=== PATIENT | male | born 1950 | race Caucasian/White ===

== ENCOUNTER 2016-08-09 15:05 | Emergency (ER) | payer BC ==
[2016-08-09 15:20] VITALS: BP 124/68
--- NOTE | 2016-08-09 16:32 | UC ---
FLU HPI - HPI Summary HPI Summary: Pt c/o generalized malaise, fever and cough X 1 week. Pt reports that he did get a flu vaccine this year. - History of Current Complaint Chief Complaint: UCRespiratory Stated Complaint: SINUS CONGESTION Time Seen by Provider: 08/09/16 15:43 Hx Obtained From: Patient Onset/Duration: Sudden Onset, Lasting Days Severity Currently: Mild Severity Initially: Mild Associated Signs & Symptoms: Positive: Fever, Myalgia, Cough Related Hx: Possible Flu/Infectious Exposure - Allergy/Home Medications Allergies/Adverse Reactions: Allergies Allergy/AdvReac Type Severity Reaction Status Date / Time No Known Allergies Allergy Verified 08/09/16 15:20 PMH/Surg Hx/FS Hx/Imm Hx Previously Healthy: Yes Endocrine History Of: Denies: Diabetes, Thyroid Disease Cardiovascular History Of: Reports: Hypertension Denies: Cardiac Disorders Respiratory History Of: Denies: COPD, Asthma GI/ History Of: Denies: Ulcer - Surgical History Surgical History: Yes Surgery Procedure, Year, and Place: bilat hernia repair - Family History Known Family History: Positive: Other - positive [facility] for URI - Social History Lives: With Family Alcohol Use: Weekly Substance Use Type: None Smoking Status (MU): Never Smoked Tobacco Review of Systems Constitutional: Fever, Chills, Fatigue Skin: Negative Eyes: Negative ENT: Negative Respiratory: Cough Cardiovascular: Negative Gastrointestinal: Negative Genitourinary: Negative Motor: Negative Neurovascular: Negative Musculoskeletal: Myalgia Neurological: Negative Psychological: Negative All Other Systems Reviewed And Are Negative: Yes Physical Exam Triage Information Reviewed: Yes Appearance: Ill-Appearing Vital Signs: Initial Vital Signs Temp 99.2 F 08/09/16 15:15 Pulse 79 08/09/16 15:15 Resp 18 08/09/16 15:15 BP 124/68 08/09/16 15:15 Pulse Ox 98 08/09/16 15:15 Vital Signs Reviewed: Yes Eye Exam: Normal ENT Exam: Other ENT: Positive: Nasal congestion Neck exam: Normal Respiratory Exam: Other Respiratory: Positive: Wheezing Cardiovascular Exam: Normal Musculoskeletal Exam: Normal Neurological Exam: Normal Psychological Exam: Normal Skin Exam: Normal Flu Course/Dx - Course Course Of Treatment: I discussed with the pt the positive Influenza A he verbalized understanding and agreed to plan of care. - Differential Dx/Diagnosis Differential Diagnosis/HQI/PQRI: Bronchitis, Influenza, Upper Respiratory Infection Provider Diagnoses: Influenza A. cough Discharge - Discharge Plan Condition: Stable Disposition: HOME Prescriptions: Benzonatate CAP* [Tessalon 100 MG CAP*] 100 mg PO TID PRN #30 cap PRN Reason: Cough predniSONE TAB* [Deltasone TAB*] 20 mg PO DAILY #4 tab Patient Education Materials: Influenza (ED) Referrals: Lorin Mcbride MD [Primary Care Provider] - Additional Instructions: Please follow up with your PCP or return to clinic as needed.
== END 2016-08-09 16:27 | disposition home or self-care (01) ==
LOC: UCEAST 15:05
DX: J09.X2 Influenza due to identified novel influenza A virus with other respiratory manifestations (principal)
CPT/HCPCS: 87502; 99212; G0463

== ENCOUNTER 2017-11-03 05:51 | Day surgery (SDC) | payer MEDICARE ==
[~2017-11-03 05:51] MED LIST: Buffered Lidocaine 0.9% SYRIN* 5 ML/SYR SYRINGE INTRADERM ONE; Ondansetron ODT TAB* 4 MG PO ONE
[2017-11-03] MEDS ORDERED: Ondansetron ODT TAB* 4 MG ONE (05:58)
[2017-11-03] MEDS ORDERED: Dexamethasone IV* 4 MG/ML 1 ML (4 MG) ONE (05:58)
[2017-11-03] MEDS ORDERED: Famotidine IV* 10 MG/ML 2 ML (20 mg) ONE (05:58)
[2017-11-03] MEDS ORDERED: ceFAZolin 2 GM PREMIX (*) 2 GM/50 ML BAG IVPB ONE (05:58)
[2017-11-03] MEDS ORDERED: Famotidine IV* 10 MG/ML 2 ML (20 mg) IV ONE (06:00)
[2017-11-03] MEDS ORDERED: Dexamethasone IV* 4 MG/ML 1 ML (4 MG) IV SLOW PU ONE (06:00)
[2017-11-03] MEDS ORDERED: EPINEPHRINE 1 MG/ML 1 ML VIAL ONE (06:49)
[2017-11-03] MEDS ORDERED: Bupivacaine 0.5% SDV PF* 30ML VIAL ONE (06:52)
[2017-11-03] MEDS ORDERED: fentaNYL* 50 MCG/ML 2 ML VIAL (100 MCG VIAL) ONE (07:07)
[2017-11-03] MEDS ORDERED: Atracurium* 10 MG/ML 10 ML VIAL ONE (07:07)
[2017-11-03] MEDS ORDERED: Midazolam* 1 MG/ML 5 ML VIAL (5 MG) ONE (07:07)
[2017-11-03] MEDS ORDERED: Propofol* 10 MG/ML 20 ML BTL IV PUSH ONE (07:07)
[2017-11-03] MEDS ORDERED: ROPIVACAINE 5 MG/ML 30 ML BTL (0.5%) ONE (07:25)
[2017-11-03] MEDS ORDERED: EPHEDrine (Pressors)* 50 MG/ML VIAL ONE (08:34)
[2017-11-03] MEDS ORDERED: oxyCODONE/Acetamin 5/325 MG* TAB PO PRN (08:47)
[2017-11-03] MEDS ORDERED: HYDROmorphone INJ* 1 MG/ML CARPUJECT SYRINGE IV PRN (08:47)
[2017-11-03] MEDS ORDERED: Naloxone* 0.4 MG/ML 1 ML VIAL IV PRN (08:47)
[2017-11-03] MEDS ORDERED: Ondansetron INJ* 2 MG/ML VIAL IV PRN (08:47)
[2017-11-03] MEDS ORDERED: DiMENhydriNATE IV* 50 MG/ML VIAL IV PUSH PRN (08:47)
[2017-11-03] MEDS ORDERED: fentaNYL* 50 MCG/ML 2 ML VIAL (100 MCG VIAL) IV PRN (08:47)
[2017-11-03] MEDS ORDERED: Atropine 1MG/ML INJ* 1 ML VIAL ONE (08:49)
[2017-11-03 10:23] VITALS: BP 126/85
--- NOTE | 2017-11-08 00:34 | OP ---
DATE OF OPERATION: 11/03/17 - [facility] DATE OF : 54 SURGEON: Jimbo Lopez MD HOMICIDE INVESTIGATOR: MODESTA Catalan. A physician university administrative assistant was required for the length of the procedure for positioning, help with instrumentation and closure. ANESTHESIOLOGIST: Bean Worthington MD ANESTHESIA: General anesthesia, interscalene block regional nerve anesthesia. PRE-OP DIAGNOSES: 1. Right shoulder rotator cuff tendon tear, supraspinatus, full-thickness, full - width. 2. Right shoulder acromioclavicular joint arthritis and subacromial spur, impingement. 3. Right shoulder superior labrum tear. POST-OP DIAGNOSES: 1. Right shoulder rotator cuff tendon tear, supraspinatus, full-thickness, full - width. 2. Right shoulder acromioclavicular joint arthritis and subacromial impingement with spur. 3. Right shoulder superior labrum tear and significant proximal biceps long head tendinitis, synovitis. 4. Right shoulder capsulitis. OPERATIVE PROCEDURE: 1. Right shoulder evaluation under anesthesia. 2. Right shoulder manipulation under anesthesia. 3. Right shoulder arthroscopic rotator cuff tendon tear, double row, supraspinatus. 4. Right shoulder arthroscopic subacromial decompression. 5. Right shoulder arthroscopic distal clavicle resection. 6. Right shoulder arthroscopic proximal biceps tenotomy and limited debridement including debridement of superior labrum. 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 The patient responded insufficiently to nonoperative management. MRI demonstrated a full-thickness, full-width supraspinatus tendon tear. The patient opted for surgical management. Discussed risks and potential complications of surgery including bleeding, infection, nerve or blood vessel injury, shoulder pain, stiffness, osteoarthritis, rotator cuff tendon tear. Discussed with the patient options for treatment of a superior labrum tear or proximal biceps tear or tendinosis. Options offered included biceps tenotomy or biceps tenodesis. The patient opted for biceps tenotomy if either was required. ANTIBIOTICS: Ancef 2 g IV. IV FLUIDS: 1800 cc crystalloid. SQZS-SO-JTUM TIME: 102 minutes. ARTHROSCOPY FLUID UTILIZED: 11 bags, each of 3 L, for a total of 33 L, approximately of arthroscopy fluid. SPECIMEN: None. IMPLANTS: Mitek Gryphon triple loaded 5.5-mm suture anchor x1. Mitek Gryphon knotless suture anchor 5.5 mm x1 with the additional suture from that anchor also utilized. COMPLICATIONS: None. ESTIMATED BLOOD LOSS: Minimal. DESCRIPTION OF PROCEDURE: The patient signed a surgical consent in preoperative holding. Operative extremity was marked in preoperative holding. The patient underwent an interscalene regional nerve block by Dr. Worthington in preoperative holding. The patient was taken to the operating room and placed supine on operating room table. The patient was sedated and intubated. Mini time-out was performed. I performed an examination under anesthesia. The patient's passive forward flexion at first was only approximately 160 degrees. I therefore performed a manipulation, and obtained an additional 15 to 20 degrees of forward flexion. There was palpable and audible popping with this manipulation maneuver. After this, there was a full external and internal rotation approximately 90 degrees each as well. The patient was placed in the lateral decubitus position. Axillary roll was placed. All bony prominences were padded. The right upper extremity was placed in longitudinal traction with the appropriate forward flexion and abduction. I used 15 pounds. The right shoulder was prepped and draped. Surgical time-out was performed. I entered the right glenohumeral joint from posterior with a spinal needle. I infused 30 cc of normal saline. I established a posterior glenohumeral joint portal. I commenced my diagnostic arthroscopy. Unsurprisingly, there was some synovitis within the shoulder joint given the capsulitis encountered with the patient first asleep. A full-thickness supraspinatus rotator cuff tendon tear was visible. Much synovitis was appreciated about the proximal biceps tendon. An anterior glenohumeral joint portal was established under direct visualization. I debrided some rotator cuff interval tissue. There was no subscapularis tendon tear. I looked at that tendon in a variety of shoulder positions including with posterior translation, internal and external rotation of the humerus. I evaluated the biceps and superior labrum carefully. There was significant red hint of synovitic tissue on both the undersurface and the superior surface of the proximal long head biceps tendon. There was also a superior labral tear. Therefore, I decided to release the biceps tendon. I brought in a scissors from anterior and cut the biceps tendon near its origin. I debrided some superior labrum with an arthroscopic shaver. No articular cartilage injury. No loose bodies in axillary recess. I removed instruments and fluid. I then placed anterior and posterior subacromial portals. Bursitic tissue was encountered in the subacromial space. I established a lateral subacromial portal under direct visualization. I debrided bursitic tissue with an arthroscopic shaver. I established a posterolateral portal under direct visualization. I evaluated the rotator cuff tendon tear. It was crescent shaped. It was reducible to the humeral head, although under just the smallest amount of tension, likely indicating some chronicity to part of this tear. This perhaps was not surprising given that the atrophy on preoperative imaging was mild to moderate. Debrided bursitic tissue about the rotator cuff tendon tear. I was able to use a grasper to reduce tendon to bone, although under some tension. I next performed a subacromial decompression with an arthroscopic bur removing up to 8 mm of the undersurface of the anterior aspect of the acromion. I then prepared the greater tuberosity rotator cuff tendon footprint with an arthroscopic bur to enable good healing. Established a lateral portal through which I put an Arthrex 7-mm plastic cannula. I had another plastic cannula anterior. I established a superolateral portal, through which I placed an anchor into the medial aspect of the rotator cuff tendon footprint. Using a [employer] suture passer, I placed 3 horizontal mattress stitches in the supraspinatus. I placed all sutures before tying them. I tied my 3 knots. Given the size of the rotator cuff tendon tear as well as it being under being some tension, I thought it would be very wynn to place a lateral row anchor. I took 4 suture strands from the medial row and placed them in a knotless 5.5-mm Mitek Gryphon suture anchor just lateral to the lateral aspect of the footprint. To accentuate even further my contact area of tendon to bone, I used the extra suture in that second anchor to place an additional horizontal mattress stitch about the posterior aspect of the rotator cuff tendon repair. I probed my repair and it showed excellent stability, likewise it was excellently stable with motion of the humeral head. I next proceeded to the AC joint. I debrided synovitic tissue with a VAPR cautery device. I then debrided 8 mm of the distal end of the clavicle with an arthroscopic bur. I removed instruments and fluid from subacromial space. I closed skin incisions with figure-of-8 and 12 stitches using nylon 4-0 suture. Xeroform, 4x4s, ABDs, foam tape. Sling and abduction pillow. Cooling unit. The patient was awakened and extubated and brought to the PACU. DISPOSITION: The patient was discharged home when medically stable. The patient was given Percocet as needed for pain control; aspirin, enteric coated, b.i.d. x14 days; as well as a 3-day supply of Keflex. The patient was instructed to call on the date of surgery to establish a Physical therapy appointment to start immediately as soon as the patient can get an appointment. Wound care instructions were provided in my discharge instruction sheet. [id number]/CPS #: [id number] MTDD
== END 2017-11-03 11:48 | disposition home or self-care (01) ==
LOC: OR 05:51
PROVIDERS: ATTEND Orthopaedic Surgery
DX: S46.011A Strain of muscle(s) and tendon(s) of the rotator cuff of right shoulder, initial encounter (principal); S43.491A Other sprain of right shoulder joint, initial encounter; M75.41 Impingement syndrome of right shoulder; M75.21 Bicipital tendinitis, right shoulder; M75.01 Adhesive capsulitis of right shoulder; W03.XXXA Other fall on same level due to collision with another person, initial encounter; Y93.23 Activity, snow (alpine) (downhill) skiing, snowboarding, sledding, tobogganing and snow tubing; Y92.838 Other recreation area as the place of occurrence of the external cause; I10 Essential (primary) hypertension; M10.9 Gout, unspecified; D46.9 Myelodysplastic syndrome, unspecified; G89.18 Other acute postprocedural pain; Z85.828 Personal history of other malignant neoplasm of skin; Z87.891 Personal history of nicotine dependence
CPT/HCPCS: A9270-GY; J0461; J0690; J1100; J2250; J2704; J2795; J3010